=== PATIENT | male | born 1995 | race Caucasian/White ===

== ENCOUNTER 2018-08-25 21:03 | Emergency (ER) | payer MEDICAID, OTHER ==
[2015-08-07 02:05] VITALS: BP 128/86
--- NOTE | 2018-08-25 21:19 | NUR ---
PATIENT LEFT WITHOUT BEING SEEN BY DR. ROLDAN. NO FURTHER CARE PROVIDED FOR PATIENT.
[2018-08-25 21:22] VITALS: BP 109/62
== END 2018-08-25 21:19 | disposition left against medical advice (07) ==
LOC: MED 21:03
DX: R10.33 Periumbilical pain (principal); R11.2 Nausea with vomiting, unspecified; Z53.21 Procedure and treatment not carried out due to patient leaving prior to being seen by health care provider